=== PATIENT | female | born 1985 | race Caucasian/White ===

== ENCOUNTER 2020-04-01 11:32 | Emergency (ER) | payer OTHER, SELFPAY ==
--- NOTE | 2020-04-01 11:38 | ED.DENTAL ---
HPI - Dental/Oral General Chief complaint: Dental/Oral Stated complaint: thrush Time Seen by Provider: 04/01/20 11:38 Source: patient Mode of arrival: ambulatory Limitations: no limitations History of Present Illness HPI Narrative: patient present with white coating to tongue and sides of mouth. Patient states she was recently on two different antibiotics and now whe feels as if she has oral thrush. no sore throat, no trouble swallowing. Related Data Allergies Allergy/AdvReac Type Severity Reaction Status Date / Time No Known Allergies Allergy Mild Verified 07/09/18 08:31 Review of Systems Review of Systems: Narrative: CONSTITUTIONAL: Denies fever, chills, or sweats. EYES: Denies visual changes, redness, or discharge. ENT: Denies rhinorrhea, congestion, sore throat, or otalgia.white coating to tongue CARDIOVASCULAR: Denies chest pain, palpitations, or edema. RESPIRATORY: Denies cough or dyspnea. GASTROINTESTINAL: Denies abdominal pain, nausea, vomiting, or diarrhea. GENITOURINARY: Denies dysuria or hematuria. SKIN: Denies rash or itching. MUSCULOSKELETAL: Denies back pain, joint pain, or myalgia. NEUROLOGIC: Denies headache, numbness, or weakness. PSYCHIATRIC: Denies anxiety or depression. PMFSH Comments At time of signature, agree with nursing past medical, surgical, social and family history. There is no relevant family history pertinent to the presenting complaint Exam Narrative: Exam Narrative: GENERAL: Well-appearing, well-nourished, and in no acute distress. HEAD: Normocephalic, atraumatic. EYES: PERRLA and EOMI. ENT: Nares clear, no rhinorrhea or epistaxis. Mucous membranes moist. white coating to tongue, unable to remove with tongue depressore, consistent with oral thrush. no pharyngeal erythema, no drooling, no trismus able to open mouth fully. NECK: Supple. CHEST: Clear to auscultation. No respiratory distress. HEART: Regular rate and rhythm. No murmur heard. Normal peripheral pulses. ABDOMEN: Soft, nontender, nondistended, normal active bowel sounds. EXTREMITIES: Normal range of motion. No edema. SKIN: Warm, dry, no rash. NEURO: No focal deficits. Alert and oriented x3. [place] Coma Scale Eye Opening: Spontaneous 4 [place] Coma Scale Motor: Obeys Commands 6 [place] Coma Scale Verbal: Oriented 5 [place] Coma Scale Total 15 Course Vital Signs Vital signs: Vital Signs Temperature 37.2 C 04/01/20 11:42 Pulse Rate 101 H 04/01/20 11:42 Respiratory Rate 04/01/20 11:42 Blood Pressure 153/90 H 04/01/20 11:42 Pulse Oximetry 100 04/01/20 11:42 Temperature 37.2 C 04/01/20 11:42 Pulse Rate 101 H 04/01/20 11:42 Respiratory Rate 04/01/20 11:42 Blood Pressure 153/90 H 04/01/20 11:42 Pulse Oximetry 100 04/01/20 11:42 Please SHAUNA schedule a followup visit with your personal physician for further evaluation and treatment. Including recheck and discussion of your blood pressure. If your symptoms persist, change or worsen significantly before you can contact your personal physician then please, without delay, go to the emergency department for further evaluation MDM - Dental/Oral Differential Diagnosis Differential diagnosis: Likely gingival abscess, dental caries, toothache, aphthous ulcer and other (Thrush) Critical Care Time Critical Care Time Critical Care Time: No Discharge Plan Discharge Clinical Impression: Oral thrush Patient Disposition: Home, Self-Care Condition: Stable Instructions: Antibiotic Form, Oral Candidiasis (ED) Additional Instructions: nystatin as prescribed follow up with furnace attendant in 3-4 days as needed if any new or worsening oc condition go to er immediately Prescriptions: New nystatin 100,000 unit/mL suspension 2 ml PO QID 7 Days Qty: 56 RF: 0 Follow-up/Referrals: PHYSICIAN,PATIENT SCHEDULING COORDINATOR [Primary Care Provider] - Stand Alone Forms: Work/School Release IP
[2020-04-01 11:42] VITALS: BP 153/90; PULSE 101; RESP 20; TEMP 37.2; O2SAT 100
== END 2020-04-01 11:56 | disposition home or self-care (01) ==
PROVIDERS: Emergency Provider Nurse Practitioner Family
DX: B37.0 Candidal stomatitis (principal)
CPT/HCPCS: 99213; G0463

== ENCOUNTER 2023-01-16 22:14 | Emergency (ER) | payer OTHER, SELFPAY ==
--- NOTE | ~2023-01-16 | XR_ITS ---
EXAMINATION: XR chest 2V DATE: 01/16/2023 22:47 INDICATION: Right-sided chest pain TECHNIQUE: PA and lateral views of the chest are obtained. COMPARISON: None available FINDINGS: The lungs are free of acute opacities. No pleural effusion or pneumothorax. The cardiomedia stinal silhouette is normal. There is mild thoracic spondylosis. IMPRESSION: 1. No acute cardiopulmonary abnormality. Reviewed, dictated and finalized at location F.
[2023-01-16 22:16] VITALS: BP 167/89; PULSE 108; RESP 17; TEMP 36.6; O2SAT 100
[2023-01-16 23:52] VITALS: O2SAT 100
[2023-01-17] VITALS (8 sets, daily range): O2SAT 98–100
--- NOTE | 2023-01-17 00:11 | ECG_ITS ---
Measurements Intervals [place] Rate: 81 P: 46 ME: 139 QRS: 56 QRSD: 93 T: 24 QT: 355 QTc: 412 Interpretive Statements SINUS RHYTHM NORMAL ELECTROCARDIOGRAM NO PREVIOUS ECG AVAILABLE FOR COMPARISON Electronically Signed On 01-17-2023 12:44:43 CDT by Nicholas Pagan M.D.
[2023-01-17] MEDS: IBUPROFEN 400 MG TABLET 800 MG PO (00:29)
[2023-01-17] MEDS: SODIUM CHLORIDE 0.9% IV 2,000 ML 999 ML IV CONT (00:30)
[2023-01-17 00:46] LABS: Basophils Percent Auto 0.5 % (0.2-1.2); Eosinophils Absolute Auto 0.1 K/mm3 (0-0.3); Eosinophils Percent Auto 1.3 % (0-4.4); Hematocrit 36.7 % (37.0-47.0); Immature Granulocyte Absolute 0.01 K/mm3 (0.00-0.031); Immature Granulocyte Percent A 0.1 % (0-0.5); Lymphocytes Absolute Auto 1.19 K/mm3 (0.9-3.2); Lymphocytes Percent Auto 15.7 % (18.3-44.2); Mean Corpuscular HGB Conc 32.7 g/dl (32-36); Mean Corpuscular Hemoglobin 27.4 pg (26-34); Mean Corpuscular Volume 83.8 fl (80-100); Monocytes Absolute Auto 0.6 K/mm3 (0.1-0.6); Monocytes Percent Auto 7.6 % (2.6-8.5); Neutrophils Absolute Auto 5.7 K/mm3 (1.3-6.7); Neutrophils Percent Auto 74.8 % (45.5-73.1); Platelet Count Result 277 k/mm3 (150-375); Red Blood Count 4.38 M/mm3 (4.2-5.4); Red Cell Distribution Width 12.6 % (11.5-14.5); White Blood Count 7.6 K/mm3 (4.5-10.0)
[2023-01-17 01:01] LABS: Anion Gap 6 mmol/L (8-16); Blood Urea Nitrogen 11 mg/dL (7-17); Carbon Dioxide 31 mmol/L (22-30); Chloride 103 mmol/L (98-107); Estimated CRCL calculation 110 ml/min; Estimated Glomerular Filt Rate > 60; Glucose 106 mg/dL (65-110); Potassium 3.7 mmol/L (3.4-5.0); Sodium 140 mmol/L (137-145)
[2023-01-17 01:20] LABS: D Dimer 0.32 ug/mL (<0.48)
--- NOTE | 2023-01-17 02:03 | ED.GENADULT ---
HPI - General Adult General Chief complaint: Back Pain/Injury Stated complaint: back pain Time Seen by Provider: 01/16/23 22:42 History of Present Illness HPI narrative: this is a 37-year-old female with a history of spontaneous pneumothorax x2 presenting ED with sharp back pain. Pain is to the right of her thoracic spine. It started at 9:32 p.m.. Is a sharp pain that is worse with deep respirations, 4 out 10 intensity. This feels like when she had a pneumothorax 20 years ago. She has not taken anything for pain medication. No shortness of breath, fever chills cough or recent viral illness. No lower extremity edema risk factors for DVT. Related Data Allergies Allergy/AdvReac Type Severity Reaction Status Date / Time No Known Allergies Allergy Mild Verified 07/09/18 08:31 [facility] Past Medical History Medical History Spontaneous pneumothorax Exam Narrative: APPEARANCE: No apparent distress. Head: atraumatic. EYES: EOMI, NOSE: Atraumatic NECK: Trachea midline RESPIRATORY: No increased rate of breathing Clear to auscultation CARDIOVASCULAR: RRR, no peripheral edema ABDOMINAL: Non-distended MUSCULOSKELETAl: no tenderness palpation over the right parathoracic muscles overlying skin changes. NEURO: Alert. Moving 4/4 extremities SKIN:: Warm, dry. Normal color PSYCHIATRIC: Normal affect Course Vital Signs Vital signs: Vital Signs Temperature 97.8 F 01/16/23 22:16 Pulse Rate 108 H 01/16/23 22:16 Respiratory Rate 17 01/16/23 22:16 Blood Pressure 167/89 H 01/16/23 22:16 Pulse Oximetry 100 01/16/23 22:16 Oxygen Delivery Room Air 01/16/23 22:16 Temperature 97.8 F 01/16/23 22:16 Pulse Rate 108 H 01/16/23 22:16 Respiratory Rate 17 01/16/23 22:16 Blood Pressure 167/89 H 01/16/23 22:16 Pulse Oximetry 100 01/16/23 22:16 Oxygen Delivery Room Air 01/16/23 22:16 Medical Decision Making [facility] Narrative Medical decision making narrative: -Presentation: 37-year-old female with history of spontaneous pneumothorax presenting with pleuritic chest pain. Patient is tachycardic upon arrival. Lab work chest x-ray EKG and D-dimer have been ordered. -DDX includes but is not limited to: Pleurisy, pneumothorax, MSK pain, PE -Co-morbidities complicating care: history of spontaneous pneumothorax -Social determinants of health: patient's occupational therapist lives with her -External Chart Review: none -Hx from independent Sources: parents at bedside -Discussion of Management/Consultants: none -Independent interpretation of studies: chest x-ray is unremarkable. Laboratory studies within normal limits. Troponin was 0.32. Independent EKG interpretation: Rhythm [sinus], Rate [81], [place] -[normal], AR -[normal], QRS [narrow], QTC [normal], T waves -[negative for concerning inversions], ST Segments - [Negative for concerning elevations] Final interpretations: [Normal Sinus Rhythm] Dx tests considered but not ordered: -Procedures: -Interventions: Motrin, Tylenol -Shared decision making / Disposition: patient's workup was negative. Upon re-evaluation she is feeling better and like to go home. Patient discharged primary care follow-up. -RX Vital Signs Vital Signs: Vital Signs Temperature 97.8 F 01/16/23 22:16 Pulse Rate 108 H 01/16/23 22:16 Respiratory Rate 17 01/16/23 22:16 Blood Pressure 167/89 H 01/16/23 22:16 Pulse Oximetry 100 01/16/23 22:16 Oxygen Delivery Room Air 01/16/23 22:16 Temperature 97.8 F 01/16/23 22:16 Pulse Rate 108 H 01/16/23 22:16 Respiratory Rate 17 01/16/23 22:16 Blood Pressure 167/89 H 01/16/23 22:16 Pulse Oximetry 100 01/16/23 22:16 Oxygen Delivery Room Air 01/16/23 22:16 Lab Data 01/17/23 00:31 01/17/23 00:31 Labs: Lab Results 01/17/23 Range/Units 00:31 WBC 7.6 (4.5-10.0) K/mm3 RBC 4.38
== END 2023-01-17 02:45 | disposition home or self-care (01) ==
PROVIDERS: Emergency Provider Emergency Medicine
DX: R09.1 Pleurisy (principal)
CPT/HCPCS: 36415; 71046; 80048; 85025; 85380; 93005; 96360; 96361; 99283; A9270; J7030